=== PATIENT | male | born 1970 | race Asian ===

== ENCOUNTER 2024-04-28 01:55 | Emergency (ER) | payer SELFPAY ==
[~2024-04-28] VITALS: Ht 175.3 cm; Wt 81.6 kg
[2024-04-28 02:03] VITALS: BP 132/76; PULSE 81; RESP 16; TEMP 97.6; O2SAT 98
[2024-04-28 02:06] VITALS: BP 132/76; PULSE 81; RESP 16; TEMP 97.6
[2024-04-28 02:07] VITALS: O2SAT 98
== END 2024-04-28 02:32 ==
LOC: MED 01:55
DX: R03.0 Elevated blood-pressure reading, without diagnosis of hypertension (principal)
CPT/HCPCS: 99283